=== PATIENT | female | born 1980 | race Caucasian/White ===

== ENCOUNTER 2017-10-03 16:45 | Emergency (ER) | payer BC ==
[~2017-10-03] VITALS: Ht 162.6 cm; Wt 96.2 kg
[~2017-10-03 16:45] MED LIST: ACETAMINOPHEN-1 EAC1 PO; AMOXIL 875 MG875 M1 PO; ANAPROX DS550 MG PO; BACTRIM DS TAB1 EACH PO; CIPROFLOXACIN500 M1 PO; FLAGYL500 MG PO; GILDESS FE 1-21 EACH; MACROBID 100 M100 M3 PO; NAPROSYN500 MG PO; NEXIUM40 MG; ORTHO TRI-CYCL1 EAC1; PRILOSEC 20 MG20 MG PO; PRILOSEC40 MG PO; PYRIDIUM200 MG PO; TRINATE TABLET1 TAB PO; ULTRAM 50MG TAB50 MG PO; VALACYCLOVIR1000 MG PO; VICODIN 5-5001 EACH PO; ZOLOFT50 MG PO
[2017-10-03 17:36] LABS: ABSOLUTE BASOPHILS 0.1 thou/uL (0.0-0.2); ABSOLUTE EOSINOPHILS 0.2 thou/uL (0.0-0.7); ABSOLUTE LYMPHOCYTES 2.1 thou/uL (0.8-5.3); ABSOLUTE MONOCYTES 0.5 thou/uL (0.0-1.2); ABSOLUTE NEUTROPHILS 3.6 thou/uL (1.6-8.1); BASOPHILS 1.1 %; EOSINOPHILS 2.4 %; HEMATOCRIT 36.3 % (37.0-47.0); LYMPHOCYTES 32.4 %; MCH 26.7 pg (26.0-34.0); MCHC 33.2 g/dL (28.0-37.0); MCV 80.5 fL (80.0-100.0); MONOCYTES 7.5 %; MPV 8.7 fl. (7.2-11.1); NUCLEATED RBCS 0 /100WBC; PLATELET COUNT* 253 thou/uL (150-400); POLYS 56.6 %; RBC 4.51 mil/uL (4.20-5.00); RDW-CV 14.3 % (10.5-14.5); WBC 6.4 thou/uL (4.0-11.0)
[2017-10-03 17:45] LABS: ANION GAP 5 mmol/L (7-16); BUN 10 mg/dL (7-18); CALCIUM 8.8 mg/dL (8.5-10.1); CHLORIDE 104 mmol/L (98-107); CO2 30 mmol/L (21-32); CREATININE 0.8 mg/dL (0.6-1.3); GLUCOSE 126 mg/dL (70-99); POTASSIUM 3.5 mmol/L (3.5-5.1); SODIUM 139 mmol/L (136-145)
[2017-10-03 17:52] LABS: ALBUMIN 3.3 g/dL (3.4-5.0); ALKALINE PHOSPHATASE 76 U/L (46-116); LIPASE 179 U/L (73-393); SGOT 19 U/L (15-37); SGPT 30 U/L (30-65); TOTAL BILIRUBIN 0.2 mg/dL (<0.1-1.0); TOTAL PROTEIN 6.9 g/dL (6.4-8.2); TROPONIN-I LEVEL <0.06 ng/mL (<0.06)
[2017-10-03 18:09] LABS: URINE BILIRUBIN NEGATIVE (Negative); URINE BLOOD NEGATIVE (Negative); URINE CLARITY CLEAR; URINE COLOR YELLOW; URINE GLUCOSE-RANDOM TRACE (Negative); URINE KETONES NEGATIVE (Negative); URINE LEUKOCYTES-REFLEX NEGATIVE (Negative); URINE NITRITE-REFLEX NEGATIVE (Negative); URINE PROTEIN NEGATIVE (Negative); URINE UROBILINOGEN 0.2 E.U./dl (0.2-1.0)
[2017-10-03] MEDS ORDERED: HYDROCODONE-AP1 EAC6 PO (18:51)
[2017-10-03 19:24] VITALS: BP 106/48
--- NOTE | 2017-10-04 15:59 | EKG ---
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1980 Requested By: Ivelisse Gutierrez Order Number: [id number] MD: Mason Bautista Measurements Intervals [facility] Rate: 81 P: 6 ND: 122 QRS: 12 QRSD: 103 T: 8 QT: 362 QTc: 421 Interpretive Statements Sinus rhythm Low voltage, precordial leads Compared to ECG 02/24/2016 21:06:33 Low QRS voltage now present T-wave abnormality no longer present Electronically Signed On 10-04-2017 15:59:18 CDT by Mason Bautista [email or web address] <ELECTRONICALLY SIGNED> By: Mason Bautista MD, LOCATED WITHIN [facility] 10/04/17 [id number] Mason Bautista MD, [facility] /EPI
== END 2017-10-03 19:26 | disposition home or self-care (01) ==
LOC: M.ERS 16:45
PROVIDERS: Physician Assistant
DX: R10.13 Epigastric pain (principal); R51 Headache; F32.9 Major depressive disorder, single episode, unspecified; K21.9 Gastro-esophageal reflux disease without esophagitis; Z77.22 Contact with and (suspected) exposure to environmental tobacco smoke (acute) (chronic)

== ENCOUNTER 2018-07-09 12:11 | Emergency (ER) | payer BC ==
[~2018-07-09] VITALS: Ht 162.6 cm; Wt 95.3 kg
[~2018-07-09 12:11] MED LIST changes: +HYDROCODONE-AP1 EAC6 PO
[2018-07-09] MEDS ORDERED: KEFLEX500 M1 PO (12:43)
[2018-07-09] MEDS ORDERED: PROTONIX40 M1 PO (12:44)
[2018-07-09] MEDS ORDERED: CYMBALTA60 MG PO (12:44)
[2018-07-09 14:06] LABS: URINE BILIRUBIN NEGATIVE (Negative); URINE BLOOD NEGATIVE (Negative); URINE CLARITY CLEAR; URINE COLOR YELLOW; URINE GLUCOSE-RANDOM NEGATIVE (Negative); URINE KETONES TRACE (Negative); URINE LEUKOCYTES-REFLEX TRACE (Negative); URINE NITRITE-REFLEX NEGATIVE (Negative); URINE PROTEIN NEGATIVE (Negative); URINE SPECIFIC GRAVITY >= 1.030 (1.005-1.030); URINE UROBILINOGEN 0.2 E.U./dl (0.2-1.0)
[2018-07-09 14:06] LABS: ABSOLUTE BASOPHILS 0.1 thou/uL (0.0-0.2); ABSOLUTE LYMPHOCYTES 2.3 thou/uL (0.8-5.3); ABSOLUTE MONOCYTES 0.5 thou/uL (0.0-1.2); EOSINOPHILS 0.5 %; HEMATOCRIT 37.2 % (37.0-47.0); LYMPHOCYTES 23.5 %; MCH 26.1 pg (26.0-34.0); MCHC 32.4 g/dL (28.0-37.0); MCV 80.6 fL (80.0-100.0); MONOCYTES 4.7 %; MPV 8.7 fl. (7.2-11.1); NUCLEATED RBCS 0 /100WBC; PLATELET COUNT* 321 thou/uL (150-400); POLYS 70.3 %; RBC 4.62 mil/uL (4.20-5.00); RDW-CV 15.5 % (10.5-14.5)
[2018-07-09 14:17] LABS: BACTERIA-REFLEX >30 Many /HPF (None Seen); CASTS None Seen /LPF (None Seen); CRYSTALS None Seen /LPF (None Seen); MUCUS None Seen strn/LPF (None Seen); SQUAMOUS >10 Many /LPF (0-3); URINE RBC None Seen /HPF (0-2); URINE WBC-REFLEX 6-15 Few /HPF (0-5)
[2018-07-09 14:25] LABS: AMP/METHAMP Negative (Negative); BARBITURATES Negative (Negative); BENZODIAZEPINES Negative (Negative); COCAINE Negative (Negative); METHADONE Negative (Negative); OPIATES Negative (Negative); PCP Negative (Negative); THC Negative (Negative)
[2018-07-09 14:29] LABS: CALCIUM 9.1 mg/dL (8.5-10.1)
[2018-07-09 14:34] LABS: ALBUMIN 3.7 g/dL (3.4-5.0); TOTAL BILIRUBIN 0.4 mg/dL (<0.1-1.0); TOTAL PROTEIN 7.3 g/dL (6.4-8.2)
[2018-07-09 14:55] LABS: INFLUENZA A ANTIGEN None Detected (None Detect); INFLUENZA B ANTIGEN None Detected (None Detect)
[2018-07-09] MEDS ORDERED: BACTRIM DS TAB1 EACH PO (15:41)
[2018-07-09] MEDS ORDERED: ACETAMINOPHEN-1 EAC1 PO (15:41)
[2018-07-09] MEDS ORDERED: MACROBID 100 M100 M1 PO (17:00)
[2018-07-09 17:07] VITALS: BP 138/76
== END 2018-07-09 17:08 | disposition home or self-care (01) ==
LOC: M.ERS 12:11
PROVIDERS: Physician Assistant
DX: R51 Headache (principal); N39.0 Urinary tract infection, site not specified; F32.9 Major depressive disorder, single episode, unspecified; K21.9 Gastro-esophageal reflux disease without esophagitis; Z77.22 Contact with and (suspected) exposure to environmental tobacco smoke (acute) (chronic)

== ENCOUNTER 2020-01-31 18:13 | Emergency (ER) | payer BC ==
[~2020-01-31] VITALS: Ht 162.6 cm; Wt 98.0 kg
[~2020-01-31 18:13] MED LIST changes: +CYMBALTA60 MG PO; +KEFLEX500 M1 PO; +MACROBID 100 M100 M1 PO; +PROTONIX40 M1 PO
[2020-01-31] MEDS ORDERED: PRILOSEC OTC20 MG PO (18:26)
[2020-01-31 18:27] LABS: URINE BILIRUBIN NEGATIVE (Negative); URINE BLOOD NEGATIVE (Negative); URINE CLARITY CLEAR; URINE COLOR YELLOW; URINE GLUCOSE-RANDOM NEGATIVE (Negative); URINE KETONES NEGATIVE (Negative); URINE LEUKOCYTES-REFLEX NEGATIVE (Negative); URINE NITRITE-REFLEX NEGATIVE (Negative); URINE PROTEIN NEGATIVE (Negative); URINE SPECIFIC GRAVITY >= 1.030 (1.005-1.030); URINE UROBILINOGEN 0.2 E.U./dl (0.2-1.0)
[2020-01-31 19:03] LABS: ABSOLUTE BASOPHILS 0.1 thou/uL (0.0-0.2); ABSOLUTE EOSINOPHILS 0.2 thou/uL (0.0-0.7); ABSOLUTE MONOCYTES 0.4 thou/uL (0.0-1.2); ABSOLUTE NEUTROPHILS 3.9 thou/uL (1.6-8.1); EOSINOPHILS 3.3 %; HEMATOCRIT 29.3 % (37.0-47.0); HEMOGLOBIN 9.3 gm/dL (12.0-15.0); LYMPHOCYTES 39.1 %; MCHC 31.6 g/dL (28.0-37.0); MCV 72.9 fL (80.0-100.0); MONOCYTES 5.7 %; MPV 7.9 fl. (7.2-11.1); NUCLEATED RBCS 0 /100WBC; PLATELET COUNT* 334 thou/uL (150-400); POLYS 50.9 %; RBC 4.02 mil/uL (4.20-5.00); RDW-CV 14.7 % (10.5-14.5); WBC 7.6 thou/uL (4.0-11.0)
[2020-01-31 19:12] LABS: CALCIUM 8.7 mg/dL (8.5-10.1); CREATININE 1.1 mg/dL (0.6-1.3); POTASSIUM 3.6 mmol/L (3.5-5.1)
[2020-01-31 19:17] LABS: ALBUMIN 3.6 g/dL (3.4-5.0); TOTAL BILIRUBIN 0.3 mg/dL (<0.1-1.0)
[2020-01-31] MEDS ORDERED: FLAGYL500 M1 PO (19:28)
[2020-01-31] MEDS ORDERED: NORCO 5-325 TA1 EAC2 PO (19:28)
[2020-01-31 20:03] VITALS: BP 134/60
== END 2020-01-31 20:06 | disposition home or self-care (01) ==
LOC: M.ERS 18:13
PROVIDERS: Physician Assistant
DX: N76.0 Acute vaginitis (principal); K21.9 Gastro-esophageal reflux disease without esophagitis; F32.9 Major depressive disorder, single episode, unspecified; Z90.710 Acquired absence of both cervix and uterus; Z77.22 Contact with and (suspected) exposure to environmental tobacco smoke (acute) (chronic)

== ENCOUNTER 2020-03-05 20:28 | Emergency (ER) | payer BC ==
[~2020-03-05] VITALS: Ht 193 cm; Wt 93.4 kg
[~2020-03-05 20:28] MED LIST changes: +FLAGYL500 M1 PO; +NORCO 5-325 TA1 EAC2 PO; +PRILOSEC OTC20 MG PO
[2020-03-05 21:27] LABS: ABSOLUTE BASOPHILS 0.1 thou/uL (0.0-0.2); ABSOLUTE EOSINOPHILS 0.2 thou/uL (0.0-0.7); ABSOLUTE LYMPHOCYTES 2.9 thou/uL (0.8-5.3); ABSOLUTE MONOCYTES 0.5 thou/uL (0.0-1.2); ABSOLUTE NEUTROPHILS 4.7 thou/uL (1.6-8.1); EOSINOPHILS 2.8 %; HEMATOCRIT 27.4 % (37.0-47.0); HEMOGLOBIN 8.8 gm/dL (12.0-15.0); LYMPHOCYTES 33.7 %; MCH 22.8 pg (26.0-34.0); MCHC 32.2 g/dL (28.0-37.0); MCV 70.9 fL (80.0-100.0); MONOCYTES 6.4 %; MPV 7.6 fl. (7.2-11.1); NUCLEATED RBCS 0 /100WBC; PLATELET COUNT* 341 thou/uL (150-400); POLYS 56.1 %; RBC 3.87 mil/uL (4.20-5.00); RDW-CV 16.6 % (10.5-14.5); WBC 8.5 thou/uL (4.0-11.0)
[2020-03-05 21:35] LABS: CREATININE 1.1 mg/dL (0.6-1.3); POTASSIUM 3.8 mmol/L (3.5-5.1)
[2020-03-05 21:48] LABS: ALBUMIN 3.3 g/dL (3.4-5.0); MAGNESIUM 1.9 mg/dL (1.8-2.4); TOTAL BILIRUBIN 0.2 mg/dL (<0.1-1.0)
[2020-03-05 22:18] LABS: ANISOCYTOSIS 1+; HYPOCHROMASIA 3+; MICROCYTES 1+; POIKILOCYTOSIS 1+; POLYCHROMASIA Occasional
[2020-03-06] MEDS ORDERED: ZOFRAN ODT4 MG PO (00:09)
[2020-03-06] MEDS ORDERED: HYDROCODON-ACE1 EAC8 PO (00:09)
[2020-03-06] MEDS ORDERED: CARAFATE 1 GM TA1 GM PO (00:12)
[2020-03-06 00:22] LABS: URINE BILIRUBIN NEGATIVE (Negative); URINE BLOOD NEGATIVE (Negative); URINE CLARITY CLEAR; URINE COLOR YELLOW; URINE GLUCOSE-RANDOM NEGATIVE (Negative); URINE KETONES TRACE (Negative); URINE LEUKOCYTES-REFLEX NEGATIVE (Negative); URINE NITRITE-REFLEX NEGATIVE (Negative); URINE PROTEIN NEGATIVE (Negative); URINE SPECIFIC GRAVITY >= 1.030 (1.005-1.030); URINE UROBILINOGEN 0.2 E.U./dl (0.2-1.0)
[2020-03-06 00:35] VITALS: BP 136/72
--- NOTE | 2020-03-06 10:12 | EKG ---
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[place] : 1980 Requested By: Onelia Aj Order Number: [id number] MD: Faraz Padilla Measurements Intervals [place] Rate: 96 P: 40 [place]: 147 QRS: 5 QRSD: 94 T: 8 QT: 339 QTc: 429 Interpretive Statements Sinus rhythm Baseline wander in lead(s) II,III,aVR,aVF,V2 Compared to ECG 10/03/2017 17:52:41 No significant changes Electronically Signed On 03-06-2020 10:12:31 CDT by Faraz Padilla [email or web address] <ELECTRONICALLY SIGNED> By: Faraz Padilla MD, [facility] 03/06/202 31 31 Faraz Padilla MD, [facility] /EPI
== END 2020-03-06 00:40 | disposition home or self-care (01) ==
LOC: M.ERS 20:28
PROVIDERS: Emergency Medicine
DX: R10.13 Epigastric pain (principal); R07.9 Chest pain, unspecified; K21.9 Gastro-esophageal reflux disease without esophagitis; Z90.710 Acquired absence of both cervix and uterus; Z79.899 Other long term (current) drug therapy; Z77.22 Contact with and (suspected) exposure to environmental tobacco smoke (acute) (chronic)

== ENCOUNTER 2020-08-07 18:07 | Emergency (ER) | payer BC ==
[~2020-08-07] VITALS: Ht 162.6 cm; Wt 99.8 kg
[~2020-08-07 18:07] MED LIST changes: +CARAFATE 1 GM TA1 GM PO; +HYDROCODON-ACE1 EAC8 PO; +ZOFRAN ODT4 MG PO
[2020-08-07 18:43] LABS: URINE BILIRUBIN NEGATIVE (Negative); URINE BLOOD NEGATIVE (Negative); URINE CLARITY CLEAR; URINE COLOR YELLOW; URINE GLUCOSE-RANDOM NEGATIVE (Negative); URINE KETONES NEGATIVE (Negative); URINE LEUKOCYTES-REFLEX NEGATIVE (Negative); URINE NITRITE-REFLEX NEGATIVE (Negative); URINE PROTEIN NEGATIVE (Negative); URINE SPECIFIC GRAVITY >= 1.030 (1.005-1.030); URINE UROBILINOGEN 0.2 E.U./dl (0.2-1.0)
[2020-08-07] MEDS ORDERED: MEDROLDOSEPACK PO (19:24)
[2020-08-07] MEDS ORDERED: NAPROSYN500 MG PO (19:24)
[2020-08-07] MEDS ORDERED: ZANAFLEX4 MG PO (19:24)
[2020-08-07 19:30] VITALS: BP 133/71
[2020-08-07] MEDS ORDERED: FLAGYL500 M1 PO (19:31)
== END 2020-08-07 19:30 | disposition home or self-care (01) ==
LOC: M.ERS 18:07
PROVIDERS: Nurse Practitioner Family
DX: M51.37 Other intervertebral disc degeneration, lumbosacral region (principal); R35.0 Frequency of micturition; K21.9 Gastro-esophageal reflux disease without esophagitis; Z90.710 Acquired absence of both cervix and uterus; Z77.22 Contact with and (suspected) exposure to environmental tobacco smoke (acute) (chronic)

== ENCOUNTER 2020-11-16 20:54 | Emergency (ER) | payer BC ==
[~2020-11-16] VITALS: Ht 162.6 cm; Wt 99.8 kg
[~2020-11-16 20:54] MED LIST changes: +MEDROLDOSEPACK PO; +ZANAFLEX4 MG PO
[2020-11-16] MEDS ORDERED: TOPROL XL25 MG PO (21:10)
[2020-11-16] MEDS ORDERED: BUPROPION XL300 MG PO (21:11)
[2020-11-16 22:14] LABS: HEMATOCRIT 32.1 % (37.0-47.0); HEMOGLOBIN 10.4 gm/dL (12.0-15.0); MCH 23.7 pg (26.0-34.0); MCHC 32.2 g/dL (28.0-37.0); MCV 73.5 fL (80.0-100.0); RBC 4.37 mil/uL (4.20-5.00); RDW-CV 17.4 % (10.5-14.5); WBC 8.7 thou/uL (4.0-11.0)
[2020-11-16 22:19] LABS: URINE BILIRUBIN NEGATIVE (Negative); URINE BLOOD NEGATIVE (Negative); URINE CLARITY CLEAR; URINE COLOR YELLOW; URINE GLUCOSE-RANDOM NEGATIVE (Negative); URINE KETONES NEGATIVE (Negative); URINE LEUKOCYTES-REFLEX NEGATIVE (Negative); URINE NITRITE-REFLEX NEGATIVE (Negative); URINE PROTEIN NEGATIVE (Negative); URINE SPECIFIC GRAVITY 1.015 (1.005-1.030); URINE UROBILINOGEN 0.2 E.U./dl (0.2-1.0)
[2020-11-16 22:28] LABS: CALCIUM 8.5 mg/dL (8.5-10.1); CREATININE 0.9 mg/dL (0.6-1.3); POTASSIUM 3.7 mmol/L (3.5-5.1)
[2020-11-16 22:29] LABS: BARBITURATES Negative (Negative); BENZODIAZEPINES Negative (Negative); COCAINE Negative (Negative); METHADONE Negative (Negative); OPIATES Negative (Negative); PCP Negative (Negative); THC Negative (Negative)
[2020-11-16 22:40] LABS: ALBUMIN 3.2 g/dL (3.4-5.0); TOTAL BILIRUBIN 0.1 mg/dL (<0.1-1.0); TOTAL PROTEIN 6.7 g/dL (6.4-8.2)
[2020-11-16 23:06] LABS: AMP/METHAMP Negative (Negative)
[2020-11-17] MEDS ORDERED: HYDROCODON-ACE1 EAC7 PO (00:38)
[2020-11-17] MEDS ORDERED: ZOFRAN ODT4 MG PO (00:40)
[2020-11-17 00:51] VITALS: BP 118/68
== END 2020-11-17 00:51 | disposition home or self-care (01) ==
LOC: M.ERS 20:54
PROVIDERS: Personal Emergency Response Attendant
DX: R10.2 Pelvic and perineal pain (principal); K21.9 Gastro-esophageal reflux disease without esophagitis; Z87.891 Personal history of nicotine dependence; Z90.710 Acquired absence of both cervix and uterus; Z79.899 Other long term (current) drug therapy

== ENCOUNTER 2021-02-23 15:55 | Emergency (ER) | payer BC ==
[~2021-02-23] VITALS: Ht 162.6 cm; Wt 99.8 kg
[~2021-02-23 15:55] MED LIST changes: +BUPROPION XL300 MG PO; +HYDROCODON-ACE1 EAC7 PO; +TOPROL XL25 MG PO
[2021-02-23] MEDS ORDERED: IBUPROFEN 800800 M1 PO (17:37)
[2021-02-23] MEDS ORDERED: HYDROCODON-ACE1 EAC7 PO (17:45)
[2021-02-23 18:08] VITALS: BP 144/71
== END 2021-02-23 18:10 | disposition home or self-care (01) ==
LOC: M.ERS 15:55
DX: S62.316A Displaced fracture of base of fifth metacarpal bone, right hand, initial encounter for closed fracture (principal); N64.4 Mastodynia; F32.9 Major depressive disorder, single episode, unspecified; K21.9 Gastro-esophageal reflux disease without esophagitis; Z87.42 Personal history of other diseases of the female genital tract; Z90.711 Acquired absence of uterus with remaining cervical stump; Z79.899 Other long term (current) drug therapy; Z88.6 Allergy status to analgesic agent; Z87.891 Personal history of nicotine dependence; V28.4XXA Motorcycle driver injured in noncollision transport accident in traffic accident, initial encounter; Y93.I9 Activity, other involving external motion; Y92.488 Other paved roadways as the place of occurrence of the external cause; Y99.8 Other external cause status